=== PATIENT | female | born 1990 | race African-American/Black ===

== ENCOUNTER 2019-12-23 16:57 | Emergency (ER) | payer SELFPAY ==
[~2019-12-23] VITALS: Ht 165.1 cm; Wt 68.0 kg
[2019-12-23] MEDS ORDERED: KETOROLAC 30MG/ML VIAL IV STA (20:27)
[2019-12-23] MEDS ORDERED: SODIUM CHLORIDE 0.9% 1,000 ML IV ONE (20:30)
[2019-12-23 21:26] LABS: BASOPHILS % 0.5 % (0.0-2.0); EOSINOPHILS % 2.5 % (0.0-5.0); HEMATOCRIT. 31.6 % (36.0-48.0); HEMOGLOBIN. 10.7 g/dL (12.0-16.0); LYMPHOCYTES % 44.1 % (20.0-50.0); MEAN CORPUSCULAR HEMOGLOBIN 29.9 pg (28.0-32.0); MEAN CORPUSCULAR VOLUME 88.4 fL (81.0-99.0); MEAN PLATELET VOLUME 7.1 fl (7.4-10.4); MONOCYTES % 6.9 % (2.0-8.0); PLATELET 486 x1000/uL (130-400); RED BLOOD CELL COUNT 3.57 mill/uL (4.2-5.4); RED CELL DISTRIBUTION WIDTH 14.2 % (11.6-14.6)
[2019-12-23 21:36] LABS: CHLORIDE 106 mEq/L (98-107)
[2019-12-23 21:46] LABS: HCG SCREEN NEGATIVE
[2019-12-24 00:28] VITALS: BP 111/70
== END 2019-12-24 00:41 | disposition home or self-care (01) ==
LOC: ER 16:57
DX: S20.02XA Contusion of left breast, initial encounter (principal); E87.8 Other disorders of electrolyte and fluid balance, not elsewhere classified; R07.9 Chest pain, unspecified; E86.0 Dehydration; Z98.890 Other specified postprocedural states; W22.8XXA Striking against or struck by other objects, initial encounter; Y93.89 Activity, other specified; Y92.89 Other specified places as the place of occurrence of the external cause; Y99.8 Other external cause status
CPT/HCPCS: 36415; 71045; 80048; 84484; 84703; 85025; 93005; 96361; 96374; 99285; J1885; J7030